=== PATIENT | female | born 1965 | race Caucasian/White ===

== ENCOUNTER 2020-04-19 10:35 | Outpatient (CLI) | payer OTHER, SELFPAY ==
--- NOTE | ~2020-04-19 | XR_ITS ---
XR hip RT min 2V 04/19/2020 11:02 Indication: Inguinal pain. Procedure: 2 views right hip Comparison: No prior studies for comparison. Findings: No fracture or traumatic malalignment. No significant joint space narrowing. No focal soft tissue abnormality. Sacral foramen are symmetric. Impression: 1: No significant bone or joint abnormality. Reviewed, dictated and finalized at location A. Impression: 1: No significant bone or joint abnormality.
--- NOTE | ~2020-04-19 | XR_ITS ---
XR lumbar spine 2-3V 04/19/2020 11:02 Indication: Lumbar radiculopathy Procedure: 3 views lumbar spine Comparison: No prior studies for comparison. Findings: Mild levocurvature of the lumbar spine. There is significant disc height loss at L2-3 and t o a lesser degree L3-4. There is endplate sclerosis and ventral osteophyte formation at L2-3. There i s mild lower lumbar facet hypertrophy. No evidence for spondylolisthesis. No acute fracture or trauma tic malalignment. Impression: 1: Mild-moderate lumbar spondylosis, most advanced at L2-3. Reviewed, dictated and finalized at location A. Impression: 1: Mild-moderate lumbar spondylosis, most advanced at L2-3.
== END 2020-04-19 10:36 | disposition home or self-care (01) ==
LOC: ANHIMG 10:42
PROVIDERS: PCP Physician Assistant; Visit Provider Physician Assistant
DX: R10.2 Pelvic and perineal pain (principal); M47.26 Other spondylosis with radiculopathy, lumbar region
CPT/HCPCS: 72100; 73502

== ENCOUNTER 2020-05-30 00:38 | Outpatient (CLI) | payer OTHER, SELFPAY ==
[2020-05-30 18:05] LABS: SARS-CoV-2 RNA PCR Negative
== END 2020-05-30 00:39 | disposition home or self-care (01) ==
LOC: ANHCOVIDDT 00:39
PROVIDERS: PCP Physician Assistant; Visit Provider Internal Medicine Gastroenterology
DX: Z01.812 Encounter for preprocedural laboratory examination (principal); Z11.59 Encounter for screening for other viral diseases
CPT/HCPCS: 87635; C9803; U0003

== ENCOUNTER 2020-06-02 02:58 | Day surgery (SDC) | payer OTHER, SELFPAY ==
[2020-05-26 15:10] VITALS: BMI 28.4
[2020-06-02 06:21] VITALS: BP 121/80; PULSE 70; RESP 18; TEMP 36.3; O2SAT 99; BMI 28.0
[2020-06-02] MEDS: LACTATED RINGERS 1,000 ML 150 ML IV CONT (06:42)
--- NOTE | 2020-06-02 07:17 | P.PNAN_ITS ---
Anes - Initial Pre Proc Eval Procedure: Operation Date: 06/02/20 07:30 Proposed Procedures p Colonoscopy - Mal Adhikari MD Date/Time: 06/02/20 07:17 Surgeon: Mal Adhikari MD Pre Op Diagnosis: Abdomen Pain Patient Data Age: 54 Gender: F Height: 5 ft Weight: 65.1 kg Last Vital Signs Temp 97.4 F L 06/02/20 06:21 Pulse 70 06/02/20 06:21 Resp 18 06/02/20 06:21 BP 121/80 06/02/20 06:21 Pulse Ox 99 06/02/20 06:21 Allergies Allergy/AdvReac Type Severity Reaction Status Date / Time hydrocodone Allergy Itching Verified 06/02/20 06:47 morphine Allergy Itching Verified 06/02/20 06:47 Home Medications Medication Instructions Recorded Confirmed Type alprazolam 0.25 mg PO HS 05/26/20 05/26/20 History escitalopram oxalate [Lexapro] 20 mg PO DAILY 05/26/20 05/26/20 History hydrochlorothiazide 25 mg PO DAILY 05/26/20 05/26/20 History lisinopril 20 mg PO DAILY 05/26/20 05/26/20 History lovastatin 20 mg PO DAILY 05/26/20 05/26/20 History oxybutynin chloride 5 mg PO DAILY 05/26/20 05/26/20 History Adult Low Dose Aspirin 81 mg BYMOUTH DAILY 06/02/20 06/02/20 History Patient hx anesthesia problems: none Family hx anesthesia problems: none PMFSH Past Medical History Medical History (Updated 06/02/20 @ 07:24 by Mal Adhikari MD) Hyperlipidemia Hypertension TIA (transient ischemic attack) Family History Family History (Updated 05/30/18 @ 09:23 by DOCTOR UNKNOWN) Grandparent Cerebrovascular accident Diabetes mellitus Mother Depression Family history of malignant neoplasm of breast in first degree relative, On set Age: 52 Patient's mother is Father Hypertension Patient's father is in good health Other Family history of throat cancer Social History Social History Smoking end date: 11/21/92 Alcohol intake: current Gender identity (if verbalized by the patient): Female Sexual Orientation (if Verbalized by the Patient): Straight or Heterosexual Anes - Eval Final PreProcedure Day of Procedure 06/02/20 07:17 Patient weight: normal Heart: regular rate and rhythm Lungs: clear to auscultation Airway: Mallampati scale class II Neurological: alert and oriented Last oral intake: >/= 8 hours ASA classification: III Emergent: no Anesthetic plan: proceed Anesthesia type and monitoring: general GIVS and standard monitoring Informed Consent: The patient's anesthetic plan and its attendant risks and benefits were discussed with the patient/family/POA. Questions were solicited and answers provided to the satisfaction of the patient/family/POA.
--- NOTE | 2020-06-02 07:22 | WPDGICN ---
Assessment and Plan Assessment and plan (1) Abdominal pain: Code(s): R10.9 - Unspecified abdominal pain Status: Acute Assessment and Plan: Patient has ongoing abdominal pain. She states pain improves after bowel movement. No bleeding has been identified. Plan is to evaluate with colonoscopy. She is being considered for procedures to evaluate ovarian cyst. (2) Right sided abdominal pain: Code(s): R10.9 - Unspecified abdominal pain Status: Acute GI Consult Note Consult date/time: 06/02/20 07:22 HPI: Marisela Stearns is a 54 year old female seen in evaluation at the request of Muna Fermin.Patient gives a history over the last 5 months of right lower quadrant and right back fullness. She states that the pain improves after a bowel movement. She states her bowels are typically regular but may be a tendency towards loose stools. She denies any bleeding. She denies any weight loss. She denies a fever. Her family history is noncontributory. Over the last for 5 months she has been evaluated by Gynecology for possible ovarian cyst. She has had a hernia excluded by surgical service. She is referred today for colonoscopy to evaluate this area. Review of Systems Review of Systems: All systems reviewed & are unremarkable except as noted in HPI and below PMFSH Past Medical History Medical History Hyperlipidemia Hypertension TIA (transient ischemic attack) Family History Family History Grandparent Cerebrovascular accident Diabetes mellitus Mother Depression Family history of malignant neoplasm of breast in first degree relative, Onset Age: 52 Patient's mother is Father Hypertension Patient's father is in good health Other Family history of throat cancer Social History Social History Smoking end date: 11/21/92 Alcohol intake: current Gender identity (if verbalized by the patient): Female Sexual Orientation (if Verbalized by the Patient): Straight or Heterosexual Meds Home Medications and Allergies Home Medications Medication Instructions Recorded Confirmed Type alprazolam 0.25 mg PO HS 05/26/20 05/26/20 History escitalopram oxalate [Lexapro] 20 mg PO DAILY 05/26/20 05/26/20 History hydrochlorothiazide 25 mg PO DAILY 05/26/20 05/26/20 History lisinopril 20 mg PO DAILY 05/26/20 05/26/20 History lovastatin 20 mg PO DAILY 05/26/20 05/26/20 History oxybutynin chloride 5 mg PO DAILY 05/26/20 05/26/20 History Adult Low Dose Aspirin 81 mg BYMOUTH DAILY 06/02/20 06/02/20 History Allergies Allergy/AdvReac Type Severity Reaction Status Date / Time hydrocodone Allergy Itching Verified 06/02/20 06:47 morphine Allergy Itching Verified 06/02/20 06:47 Vital Signs Vital Signs - 24 hr 06/02/20 06:21 Temperature 97.4 F L Pulse Rate 70 Respiratory Rate 18 Blood Pressure 121/80 Pulse Oximetry 99 Exam Narrative: Exam Narrative: Physical exam reveals patient to be alert. Vital signs stable. HEENT exam unremarkable. She is anicteric. Lungs are clear to auscultation and percussion. Heart is without murmur or extra sounds. Abdominal exam bowel sounds are present soft nontender with no hepatosplenomegaly. Digital external rectal exam is normal.
[2020-06-02 07:48] VITALS: BP 84/48; PULSE 64; RESP 27; O2SAT 99
[2020-06-02 07:58] VITALS: BP 86/52; PULSE 57; RESP 27; O2SAT 100
[2020-06-02 08:08] VITALS: BP 114/65; PULSE 61; RESP 15; O2SAT 100
--- NOTE | 2020-06-02 08:10 | SUR.PREOP ---
Patient complaining of eye itching. New orders from Dr Dinero.
[2020-06-02] MEDS: PROPARACAINE HCL 0.5% 15 ML OPHTH SOLN 1 DROP EACH EYE (08:20)
[2020-06-02] MEDS: DICLOFENAC SODIUM 0.1% OPHTH SOLN 2.5 ML BOTTLE 1 DROP EACH EYE (08:25)
--- NOTE | 2020-06-02 08:46 | SUR.PHASEII ---
pt was scratching eye when waking up, feels like it is irritated and red. anesthesia orders for corneal abrasion done, instructions given to patient and medical driver.
== END 2020-06-02 08:40 | disposition home or self-care (01) ==
PROVIDERS: PCP Physician Assistant; Visit Provider Internal Medicine Gastroenterology
PROC: 0DJD8ZZ Inspection of Lower Intestinal Tract, Via Natural or Artificial Opening Endoscopic (ICD-10-PCS; CPT 45378; principal; 2020-06-02 07:30)
DX: R10.9 Unspecified abdominal pain (principal); D12.0 Benign neoplasm of cecum; D12.5 Benign neoplasm of sigmoid colon; K64.8 Other hemorrhoids; I10 Essential (primary) hypertension; E78.5 Hyperlipidemia, unspecified; Z86.73 Personal history of transient ischemic attack (TIA), and cerebral infarction without residual deficits; Z79.82 Long term (current) use of aspirin
CPT/HCPCS: 45385; 88305; A9270; J2704; J7120

== ENCOUNTER 2020-10-30 08:02 | Outpatient (CLI) | payer OTHER, SELFPAY ==
--- NOTE | ~2020-10-30 | MM_ITS ---
EXAMINATION: MM screening marie BI w jason HISTORY: Screening TECHNIQUE: Craniocaudal and mediolateral oblique 3-D tomosynthesis images were obtained and synthetic 2-D images were generated. CAD analysis was submitted and interpreted. COMPARISON: Comparison to multiple prior studies sequentially, with oldest reviewed study dated 12/2012. BREAST PARENCHYMAL COMPOSITION: There are scattered areas of fibroglandular density. FINDINGS: There is no evidence of suspicious mass, calcification, or architectural distortion to sugg est malignancy in either breast. There has been no suspicious interval change. IMPRESSION: 1. No mammographic evidence of malignancy. 2. Recommend routine screening mammography in one year. BI-RADS Category 1: Negative Reviewed, dictated and finalized at location A. ING ATTENDANT
== END 2020-10-30 08:03 | disposition home or self-care (01) ==
PROVIDERS: PCP Physician Assistant; Visit Provider Obstetrics & Gynecology
DX: Z12.31 Encounter for screening mammogram for malignant neoplasm of breast (principal)
CPT/HCPCS: 77063; 77067

== ENCOUNTER 2022-04-21 17:51 | Emergency (ER) | payer OTHER, SELFPAY ==
--- NOTE | 2022-04-21 17:53 | ED.URI ---
HPI - URI/Sore Throat General Chief Complaint: Upper Respiratory Infection Stated Complaint: rt earache,cough Time Seen by Provider: 04/21/22 17:53 Source: patient Mode of arrival: ambulatory Limitations: no limitations History of Present Illness HPI Narrative: Ms. Stearns is a 56-year-old female patient presenting to the clinic today with complaints of right ear pain and cough times. She reports. MD elicited complaint: cough and other (Ear pain) Related Data Home Medications Medication Instructions Recorded Confirmed alprazolam 0.25 mg tablet 0.25 tablet HS 04/21/22 04/21/22 aspirin 81 mg chewable tablet 81 mg PO DAILY 04/21/22 04/21/22 escitalopram oxalate 20 mg tablet 20 tablet DAILY 04/21/22 04/21/22 hydrochlorothiazide 12.5 mg tablet 12.5 tablet DAILY 04/21/22 04/21/22 lisinopril 10 mg tablet 10 tablet DAILY 04/21/22 04/21/22 lovastatin 20 mg tablet 20 tablet DAILY 04/21/22 04/21/22 Allergies Allergy/AdvReac Type Severity Reaction Status Date / Time hydrocodone Allergy Itching Verified 06/02/20 06:47 morphine Allergy Itching Verified 06/02/20 06:47 Review of Systems Review of Systems: Pertinent positives per HPI. Patient denies any fever, chills, rash, headache, visual changes, dizziness, cough, runny nose, sore throat, shortness of breath, chest pain, palpitations, nausea, vomiting, diarrhea, constipation, abdominal pain, or any urinary issues. [facility] Past Medical History Medical History (Updated 04/21/22 @ 18:17 by Chemo Powell APRN) Hyperlipidemia Hypertension TIA (transient ischemic attack) Family History Family History Grandparent Cerebrovascular accident Diabetes mellitus Mother Depression Family history of malignant neoplasm of breast in first degree relative, Onset Age: 52 Patient's mother is Father Hypertension Patient's father is in good health Other Family history of throat cancer Social History Social History Smoking end date: 11/21/92 Alcohol intake: current Gender identity (if verbalized by the patient): Female Sexual Orientation (if Verbalized by the Patient): Straight or Heterosexual Comments At the time of my signature, I reviewed and agree with the nursing past medical, surgical, social, and family history. There is no relevant family history pertinent to the patient complaint. Exam Narrative: General: Well-developed, well nourished, in no apparent distress Head: Normocephalic, atraumatic Eyes: Pupils equally round and reactive to light bilaterally, EOM intact, sclera and conjunctive clear, no discharge, lids normal Ears: TMs intact, dull, and mild bulging, ear canals clear, no drainage, grossly hearing normal. Tender to palpation over the eustachian tubes Nose: Nares patent, clear nasal discharge, no inflammation, no sinus tenderness. Mouth: Oropharynx without lesions or masses, good dentition, MMM. Postnasal drip Neck: Supple, trachea midline, no enlargement of anterior or posterior cervical nodes, no thyroid masses or goiter palpable. Cardio: Regular rate and rhythm, s1 and s2 normal, no murmur appreciated. Resp: Clear to auscultation bilaterally anteriorly and posteriorly, no rhonchi, rales, wheezing or rubs Course Course Emergency Course: Portions of this record may have been created with voice recognition software. Level of Care: Express Care Visit Vital Signs Vital signs: Vital signs reviewed MDM - URI/Sore Throat MDM Narrative Medical decision making narrative: At the time of visit patient is resting comfortably on the exam table. Differential Diagnosis Differential diagnosis: Likely upper respiratory infection, otitis media, sinusitis, viral infection, bronchitis, influenza, pharyngitis and other (COVID) Discharge Plan Discharge Clinical Impression: PND (post-nasal drip) URI
[2022-04-21 18:09] VITALS: BP 156/81; PULSE 91; RESP 18; TEMP 36.5; O2SAT 100
== END 2022-04-21 18:22 | disposition home or self-care (01) ==
PROVIDERS: Emergency Provider Nurse Practitioner Family; PCP Physician Assistant
DX: J06.9 Acute upper respiratory infection, unspecified (principal); H69.83 Other specified disorders of Eustachian tube, bilateral; E78.5 Hyperlipidemia, unspecified; I10 Essential (primary) hypertension; Z79.82 Long term (current) use of aspirin; Z86.73 Personal history of transient ischemic attack (TIA), and cerebral infarction without residual deficits
CPT/HCPCS: 99213; G0463

== ENCOUNTER → 2022-06-11 14:37 | Outpatient (CLI) | payer SELFPAY ==
--- NOTE | ~2022-06-11 | MM_ITS ---
EXAMINATION: MM screening marie BI w jason HISTORY: Screening TECHNIQUE: Craniocaudal and mediolateral oblique 3-D tomosynthesis images were obtained and synthetic 2-D images were generated. CAD analysis was submitted and interpreted. COMPARISON: Comparison to multiple prior studies sequentially, with oldest reviewed study dated 07/04. BREAST PARENCHYMAL COMPOSITION: There are scattered areas of fibroglandular density. FINDINGS: There is no evidence of suspicious mass, calcification, or architectural distortion to sugg est malignancy in either breast. There has been no suspicious interval change. IMPRESSION: 1. No mammographic evidence of malignancy. 2. Recommend routine screening mammography in one year. BI-RADS Category 1: Negative Reviewed, dictated and finalized at location A.
== END ==
PROVIDERS: PCP Physician Assistant; Visit Provider Obstetrics & Gynecology
DX: Z12.31 Encounter for screening mammogram for malignant neoplasm of breast (principal)
CPT/HCPCS: 77063; 77067

== ENCOUNTER 2025-10-31 14:50 | Emergency (ER) | payer OTHER, SELFPAY ==
[2025-10-31 15:04] VITALS: BP 146/86; PULSE 65; RESP 16; TEMP 36.3; O2SAT 100
--- NOTE | 2025-10-31 15:08 | ED.FEMALEGU ---
HPI - Female Genitourinary General Chief complaint: Urogenital-Female Stated complaint: UTI Patient presents to the [facility] with complaints of burning with urination, urinary frequency, and discolored urine that has been intermittent for about 1 month. Patient noted when she noticed symptoms would increase water intake at [place] to use and symptoms will resolve. Patient reports earlier this week that she could see some blood in her urine and had worsening symptoms. No history of urinary tract infections. Patient denies any back pain, flank pain, fever chills, body aches, or vaginal symptoms. No concerns for STDs at this time. Related Data Home Medications ?Medication ?Instructions ?Recorded ?Confirmed ?Last Taken ?Type alprazolam 0.25 mg tablet 0.25 tablet HS 04/21/22 04/21/22 Unknown History aspirin 81 mg chewable tablet 81 mg PO DAILY 04/21/22 04/21/22 Unknown History escitalopram oxalate 20 mg tablet 20 tablet DAILY 04/21/22 04/21/22 Unknown History hydrochlorothiazide 12.5 mg tablet 12.5 tablet DAILY 04/21/22 04/21/22 Unknown History lisinopril 10 mg tablet 10 tablet DAILY 04/21/22 04/21/22 Unknown History lovastatin 20 mg tablet 20 tablet DAILY 04/21/22 04/21/22 Unknown History Allergies Allergy/AdvReac Type Severity Reaction Status Date / Time hydrocodone Allergy Itching Verified 10/31/25 15:08 morphine Allergy Itching Verified 10/31/25 15:08 Review of Systems Constitutional: Constitutional: Reports as per HPI, Denies chills and Denies fatigue Eyes: Eyes: Reports no additional eye complaints ENT: Reports system reviewed and no additional complaints, except as documented Cardiovascular: Cardiovascular: Reports no additional cardiovascular complaints Respiratory: Respiratory: Reports no additional respiratory complaints Gastrointestinal: Gastrointestinal: Reports as per HPI, Denies abdominal pain, Denies bloating, Denies diarrhea, Denies nausea and Denies vomiting Genitourinary: Genitourinary: Reports as per HPI, Denies abnormal vaginal bleeding, Reports hematuria, Reports nocturia, Denies genital lesions, Reports dysuria, Denies pelvic pain, Denies flank pain, Denies urinary incontinence and Denies vaginal discharge Musculoskeletal: Musculoskeletal: Reports as per HPI, Denies back pain and Denies myalgias Integumentary/Breasts: Skin/Breast: Reports system reviewed and no additional complaints, except as docu Neurologic: Reports system reviewed and no additional complaints, except as documented Psychiatric: Psychiatric: Reports no additional psychiatric complaints Endocrine: Endocrine: Reports no additional endocrine complaints Hematologic/Lymphatic: Hematologic/Lymphatic: Reports no additional hematologic/lymphatic complaints Allergic/Immunologic: Allergic/Immunologic: Reports no additional allergic/immunologic complaints PMF Past Medical History Medical History (Updated 10/31/25 @ 15:17 by Viji Mancia APRN, [employer]FFIC AND [employer]SPORT PLANNER-C) Fibroids Hypertension Hyperlipidemia TIA (transient ischemic attack) Surgical History Surgical History (Updated 06/10/22 @ 12:33 by Hyacinth Rodrigues [facility]) History of appendectomy (~04/21/18) S/P skin biopsy (08/04/20) skin biopsy left breast / Benign Delivery by section (~11/21/92) Primary - failure to progess History of colposcopy (04/21/06) Colposcopy - LGSIL History of hysteroscopy (10/02/08) hysteroscopy/D&C - menometrorrhagia/dysmenorrhea - benign History of hysterectomy, supracervical (12/12/08) Supracervical hyst - menometrorrhagia/dysmenorrhea/fibroids Family History Family History Grandparent Cerebrovascular accident Diabetes mellitus Mother Depression Family history of malignant neoplasm of breast in first degree relative, Onset Age: 52 Patient's mother is Father Hypertension Patient's father is in good health Other Family history of throat cancer Social History Social History Smoking end date: 11/21/92 Alcohol intake: current Gender identity (if verbalized by the patient): Female Sexual Orientation (if Verbalized by the Patient): Straight or Heterosexual Exam Const: General: healthy appearing and no acute distress Nutritional Appearance: well nourished Orientation/consciousness: patient oriented x3 Limitations: no limitations Resp: Effort & Inspection: normal respiratory effort Auscultation: clear to auscultation bilaterally Cardio: Rate: regular rate Rhythm: regular rhythm GI: Inspection: non-distended GI Palp: Yes Soft to palpation, Yes Tenderness to palpation present (GI) ( Suprapubic), No Guarding due to palpation present (GI), No Rigid due to palpation and No Hernia present Auscultation: normal bowel sounds : General: Yes bladder normal to palpation and Yes no CVA tenderness Back/Spine/Pelvis: Back: no CVA tenderness Skin: General skin exam: normal color Rashes: no rashes Wounds: no wounds Neuro: General: patient oriented x3 Speech: normal speech Gait exam (Neuro): Normal gait present Psych: Appearance: grossly normal Mental Status: mental status grossly normal Affect: normal affect Attitude: cooperative Course Course Level of Care: Express Care Visit Vital Signs Vital signs: Vital Signs Temperature 97.3 F L 10/31/25 15:04 Pulse Rate 65 10/31/25 15:04 Respiratory Rate 16 10/31/25 15:04 Blood Pressure 146/86 H 10/31/25 15:04 Pulse Oximetry 100 10/31/25 15:04 Oxygen Delivery Room Air 10/31/25 15:04 Temperature 97.3 F L 10/31/25 15:04 Pulse Rate 65 10/31/25 15:04 Respiratory Rate 16 10/31/25 15:04 Blood Pressure 146/86 H 10/31/25 15:04 Pulse Oximetry 100 10/31/25 15:04 Oxygen Delivery Room Air 10/31/25 15:04 [facility] Narrative Medical decision making narrative: UA shows microscopic blood will treat with Macrobid and sent culture The patient was evaluated by myself in the express care. History is obtained from patient who is an independent historian and physical exam was performed. Available medical records were reviewed at this time. Exam findings show no acute concerns or changes; patient is non-toxic appearing and is in no distress. Patient is appropriate for outpatient treatment and follow-up. I have evaluated and discussed social determinants of health with the patient that could potentially impact subsequent diagnosis and treatment plans. Differential diagnosis and treatment plan were discussed with the patient. Patient agrees with discussion and after shared medical decision making agrees with plan of care. All questions were answered to the patient's satisfaction. Differential Diagnosis Differential Diagnosis: STD, ureteritis, hematuria, atrophic vaginitis, cystitis Medical Records I have reviewed the following patient records and this information was taken into consideration when formulating the assessment and plan.: previous labs, previous ER visits, previous hospitalizations and previous clinic visits Lab Data [facility] Lab Attestation statement: I personally reviewed the patient's lab results. Discharge Plan Discharge Clinical Impression: Cystitis Patient Disposition: Home Condition: Stable Instructions: Antibiotic Form, Urinary Tract Infection in Women (ED) Additional Instructions: We will send a urine culture off to the lab; if the culture identifies an organism that the prescribed antibiotic will not treat, you will receive a phone call from an urgent care staff member and an appropriate antibiotic will be prescribed. -Your symptoms should begin to improve within a day of starting antibiotics. But you should finish all the antibiotic pills you get. Otherwise your infection might come back. -Also recommend: drink more fluid. It might help flush out germs, and it does no harm -Tylenol/ibuprofen as needed for pain -Follow-up with your primary care provider for urine recheck OR if your symptoms persist, change or worsen significantly before you can contact your personal physician then please, without delay, go to the emergency department for further evaluation. Patient Language: Citizen Of [place] Prescriptions: New nitrofurantoin monohyd/m-cryst [Macrobid] 100 mg capsule 100 mg PO Q12H 5 Days Qty: 10 0RF Rx Instructions: must administer with a meal/food No Action alprazolam 0.25 mg tablet 0.25 tablet HS lisinopril 10 mg tablet 10 tablet DAILY aspirin 81 mg Tablet,Chewable 81 mg PO DAILY lovastatin 20 mg tablet 20 tablet DAILY escitalopram oxalate 20 mg tablet 20 tablet DAILY hydrochlorothiazide 12.5 mg tablet 12.5 tablet DAILY Follow-up/Referrals: Jeny,LILIANA Toro [Primary Care Provider, Unknown] Time of Disposition: 15:18
[2025-10-31 15:17] LABS: EDUAAPPEAR Cloudy; EDUABILI Negative (Negative); EDUABLOOD 2+ (Negative); EDUACOLOR1 Yellow; EDUAGLUCOSE Negative (Negative); EDUAKETONE Negative (Negative); EDUALEUKO Negative (Negative); EDUANITRATE Negative (Negative); EDUAPH 7.0; EDUAPROTEIN Negative (Negative); EDUASPGRAVITY 1.015; EDUAUROBILI 1.0
== END 2025-10-31 15:22 | disposition home or self-care (01) ==
PROVIDERS: Emergency Provider Nurse Practitioner Family; PCP Physician Assistant
DX: N30.90 Cystitis, unspecified without hematuria (principal); I10 Essential (primary) hypertension; E78.5 Hyperlipidemia, unspecified; Z86.73 Personal history of transient ischemic attack (TIA), and cerebral infarction without residual deficits
CPT/HCPCS: 81003; 87086; 99213; G0463